=== PATIENT | female | born 1955 | race Caucasian/White ===

== ENCOUNTER 2024-03-25 02:41 | Inpatient (IN) | payer OTHER, MEDICARE, SELFPAY ==
[2024-03-24] VITALS (14 sets, daily range): BP systolic 85–123; BP diastolic 51–76
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
[2024-03-24 20:03] LABS: % Basophils 2.5 % (0-2); % Eosinophils 0.1 % (0-6); % Immature Granulocytes 22.1 % (0-0.5); % Monocytes 3.8 % (1.7-9.3); % Neutrophils 64.5 % (42.2-75.2); Absolute Immature Granulocytes 8.7 10^3/uL (0-0.05); Absolute Lymphocytes 2.8 10^3/uL (1.2-3.4); Absolute Monocytes 1.5 10^3/uL (0.1-0.6); Absolute Neutrophils 25.4 10^3/uL (1.4-6.5); Mean Corpuscular Hgb 28.2 pg (27.0-31.0); Mean Corpuscular Volume 88.1 fL (81.0-99.0); Mean Platelet Volume 9.5 fL (7.4-10.4); Nucleated Red Blood Cells % 0.9 %; Platelet Count 1221 10^3/uL (130-400); Red Blood Cell Count 2.27 10^6/uL (4.20-5.40); Red Cell Dist. Width 17.2 % (11.5-14.5); White Blood Cell Count 39.3 10^3/uL (4.8-10.8)
[2024-03-24 20:18] LABS: ALT (SGPT) 16 U/L (0-35); AST (SGOT) 34 U/L (14-36); Albumin 3.2 g/dl (3.5-5.0); Alkaline Phosphatase 89 U/L (38-126); Blood Urea Nitrogen 18 mg/dl (7-17); Calcium 8.7 mg/dl (8.4-10.2); Carbon Dioxide 24 mmol/L (22-30); Chloride 101 mmol/L (98-107); Glucose 76 mg/dl (70-99); Sodium 131 mmol/L (135-145); Total Bilirubin 0.8 mg/dl (0.2-1.3); Total Protein 5.5 g/dl (6.3-8.2); eGFR > 60.00
[2024-03-24 20:20] LABS: Hemoglobin 6.4 g/dL (12.0-16.0)
[2024-03-24 20:44] LABS: Absolute Neutrophils -Man Diff 29.4 10^3/uL (1.4-6.5); Anisocytosis 2+; Band Neutrophils 3 % (0-3); Lymphocytes 5 % (20-51); Macrocytosis 2+; Metamyelocytes 6 % (-); Microcytosis 1+; Monocytes 4 % (2-9); Myelocytes 9 % (-); Normal RBC Morphology No; Nucleated Red Blood Cells 2 (-); Pathologist Reviewed No; Platelets Checked Yes; Polychromasia 2+; Promyelocytes 1 % (-); Segmented Neutrophils 72 % (42-75)
[2024-03-24 20:45] LABS: Tear Drop Red Blood Cells 1+; Total Cells Counted 100
[2024-03-24 21:08] LABS: Lactic Acid 0.7 mmol/L (0.7-2.0)
[2024-03-24] MEDS: NSS 250 IV (22:30)
[2024-03-24] MEDS: MORPHINE SULFATE 2 MG IV (22:30)
[2024-03-25] VITALS (29 sets, daily range): BP systolic 103–132; BP diastolic 54–88; PULSE 95–96; O2SAT 96; BMI 27.8
[2024-03-25] MEDS: XANAX 0.5 MG PO (00:02)
[2024-03-25] MEDS: DILAUDID 0.5 MG IV ×3 (03:12→21:14)
[2024-03-25] MEDS: DESYREL 50 MG PO ×2 (03:12→23:21)
[2024-03-25 05:30] LABS: Hematocrit 21.5 % (37.0-47.0); Hemoglobin 7.2 g/dL (12.0-16.0); Mean Corp Hgb Conc. 33.5 g/dL (33.0-37.0); Mean Corpuscular Hgb 29.4 pg (27.0-31.0); Mean Corpuscular Volume 87.8 fL (81.0-99.0); Mean Platelet Volume 8.9 fL (7.4-10.4); Platelet Count 1026 10^3/uL (130-400); Red Blood Cell Count 2.45 10^6/uL (4.20-5.40); Red Cell Dist. Width 16.4 % (11.5-14.5); Reticulocyte Count 6.9 % (0.4-2.8); White Blood Cell Count 38.3 10^3/uL (4.8-10.8)
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
[2024-03-25 06:10] LABS: Blood Urea Nitrogen 16 mg/dl (7-17); Calcium 8.7 mg/dl (8.4-10.2); Carbon Dioxide 24 mmol/L (22-30); Chloride 104 mmol/L (98-107); Glucose 81 mg/dl (70-99); Sodium 129 mmol/L (135-145); eGFR > 60.00
[2024-03-25 06:17] LABS: Iron 28 ug/dl (37-170)
[2024-03-25 06:26] LABS: Percent Saturation 9 % (20-50); Total Iron Binding Capacity 283 ug/dl (265-497)
[2024-03-25 07:00] LABS: Vitamin B12 963 pg/ml (239-931)
[2024-03-25] MEDS: TOPROL XL 25 MG PO ×2 (07:21→21:10)
[2024-03-25] MEDS: COLACE 100 MG PO ×2 (07:21→21:11)
[2024-03-25] MEDS: TYLENOL 1000 MG PO ×3 (07:22→23:08)
[2024-03-25] MEDS: ROXICODONE 5 MG PO ×3 (07:23→23:12)
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
[2024-03-25 12:47] LABS: Osmolality Serum 279 mOsm/kg (275-300)
[2024-03-25 14:53] LABS: Urine Albumin Negative (Neg - Trace); Urine Bilirubin Negative (Negative); Urine Character Clear (Clear); Urine Color Yellow; Urine Glucose Negative (Negative); Urine Ketone Negative (Negative); Urine Leukocyte Trace (Negative); Urine Nitrite Negative (Negative); Urine Occult Blood Negative (Negative); Urine Specific Gravity 1.015 (<1.030); Urine Urobilinogen Negative (Neg - 1+)
[2024-03-25 15:03] LABS: Urine Bacteria Few (Negative); Urine Squamous Cell 0-2 /LPF (Few)
[2024-03-25 15:04] LABS: Urine Red Blood Cell 0-2 /HPF (0-2); Urine White Cell 0-2 /HPF (0-5)
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
--- NOTE | 2024-03-25 17:23 | PTCARENOTE ---
pt admitted from ed. pt aaox3. tearful about pt husbands recent passing. pt states 8/10 pain in right hip. pain med given as ordered. prbc running started in ER. pt roomed in. daughter at bedside reviewed pt condition and plan of care.
bruising noted over right hip abd left flank both knees right breast. scab seen on left wrist. left leg in soft cast. pulses present bilat dp. room air breath sounds diminished with poor ins effort. i/s encouraged.
[2024-03-25] MEDS: FLEXERIL 10 MG PO ×2 (17:31→23:08)
[2024-03-25 18:35] LABS: Osmolality Urine 394 mOsm/kg (300-900)
[2024-03-25 18:46] LABS: Urine Sodium 54 mmol/L (30-90)
[2024-03-25] MEDS: SENOKOT 17.1999999999999993 MG PO (23:12)
[2024-03-25] MEDS: TYLENOL PO (23:57)
[2024-03-26] VITALS (10 sets, daily range): BP systolic 98–129; BP diastolic 58–77
--- NOTE | 2024-03-26 01:56 | PTCARENOTE ---
Pt received from previous shift in bed. AAOx3, tearful at times ( recently) Telemetry = SR w/1st AV block. Full physical assessment documented (refer to worklist). Vascular checks WNL. Soft cast to LLE. Medicated for pain
per MD orders (refer to MAR). #20 LFA and #20 RAC INTs patent. Call wilson within reach. Plan of care ongoing.
[2024-03-26] MEDS: DILAUDID 0.5 MG IV ×3 (03:14→20:45)
[2024-03-26 03:59] LABS: Absolute Lymphocytes 2.6 10^3/uL (1.2-3.4); Hematocrit 25.7 % (37.0-47.0); Hemoglobin 8.6 g/dL (12.0-16.0); Mean Corp Hgb Conc. 33.5 g/dL (33.0-37.0); Mean Corpuscular Hgb 29.3 pg (27.0-31.0); Mean Corpuscular Volume 87.4 fL (81.0-99.0); Mean Platelet Volume 9.4 fL (7.4-10.4); Nucleated Red Blood Cells % 0.5 %; Platelet Count 972 10^3/uL (130-400); Red Blood Cell Count 2.94 10^6/uL (4.20-5.40); Red Cell Dist. Width 16.3 % (11.5-14.5); White Blood Cell Count 34.2 10^3/uL (4.8-10.8)
[2024-03-26 04:02] LABS: INR 1.12; PT 14.3 Sec (11.4-14.6)
[2024-03-26 04:03] LABS: APTT 36.6 Sec (23.4-35.0)
[2024-03-26 04:14] LABS: Blood Urea Nitrogen 16 mg/dl (7-17); Calcium 9.2 mg/dl (8.4-10.2); Carbon Dioxide 25 mmol/L (22-30); Chloride 103 mmol/L (98-107); Estimated Creatinine Clearance 85 ml/min; Glucose 75 mg/dl (70-99); Sodium 132 mmol/L (135-145); eGFR > 60.00
[2024-03-26 05:18] LABS: Absolute Neutrophils -Man Diff 25.3 10^3/uL (1.4-6.5); Band Neutrophils 6 % (0-3); Lymphocytes 5 % (20-51); Metamyelocytes 6 % (-); Monocytes 2 % (2-9); Segmented Neutrophils 68 % (42-75)
[2024-03-26 05:19] LABS: Myelocytes 11 % (-)
[2024-03-26 05:25] LABS: Platelets Checked Yes
[2024-03-26 05:26] LABS: Anisocytosis 1+; Burr Cells 1+; Normal RBC Morphology No; Nucleated Red Blood Cells 2 (-); Ovalocytes 1+; Rouleaux 1+; Total Cells Counted 100
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
[2024-03-26] MEDS: TYLENOL 1000 MG PO ×3 (07:34→23:19)
[2024-03-26] MEDS: COLACE 100 MG PO (07:34)
[2024-03-26] MEDS: FLEXERIL 10 MG PO ×3 (07:35→23:19)
[2024-03-26] MEDS: TOPROL XL 25 MG PO ×2 (07:35→20:14)
--- NOTE | 2024-03-26 07:59 | W.PN.UPDATE ---
Update Note
Progress Note Update
Pt seen and chart reviewed
Splint removed
Has nondisplaced fx of the L medial malleolus
No surgery indicated at this time
Fx Walker brace ordered
Please keep nonWB L LE with walker
Have F/U with me in about 7-10 days as outpt
thanks
GGMD
[2024-03-26] MEDS: ROXICODONE 5 MG PO ×3 (11:33→23:19)
[2024-03-26] MEDS: FERRLECIT 110 MG IV (13:13)
[2024-03-26] MEDS: XANAX 0.5 MG PO ×2 (13:16→23:19)
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
--- NOTE | 2024-03-26 18:30 | TRANSFER ---
Pt transferred to [facility] via wheelchair with all personal belongings. Telephone report given to Kristina GUTHRIE.
[2024-03-26] MEDS: SENOKOT PO (20:14)
[2024-03-26] MEDS: COLACE PO (20:14)
[2024-03-27] MEDS: ROXICODONE 5 MG PO ×4 (03:37→23:07)
[2024-03-27 03:56] VITALS: BP 140/72
[2024-03-27 05:17] LABS: Hematocrit 24.9 % (37.0-47.0); Hemoglobin 8.1 g/dL (12.0-16.0); Mean Corp Hgb Conc. 32.5 g/dL (33.0-37.0); Mean Corpuscular Hgb 28.5 pg (27.0-31.0); Mean Corpuscular Volume 87.7 fL (81.0-99.0); Mean Platelet Volume 8.8 fL (7.4-10.4); Platelet Count 865 10^3/uL (130-400); Red Blood Cell Count 2.84 10^6/uL (4.20-5.40); Red Cell Dist. Width 16.3 % (11.5-14.5)
[2024-03-27 06:33] LABS: Blood Urea Nitrogen 17 mg/dl (7-17); Calcium 8.9 mg/dl (8.4-10.2); Carbon Dioxide 25 mmol/L (22-30); Chloride 103 mmol/L (98-107); Estimated Creatinine Clearance 85 ml/min; Glucose 78 mg/dl (70-99); Sodium 131 mmol/L (135-145); eGFR > 60.00
[2024-03-27 07:53] VITALS: BP 134/72
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
[2024-03-27 08:26] LABS: Band Neutrophils 6 % (0-3)
[2024-03-27 08:27] LABS: Lymphocytes 6 % (20-51); Metamyelocytes 5 % (-); Monocytes 2 % (2-9); Myelocytes 11 % (-); Normal RBC Morphology No; Nucleated Red Blood Cells 3 (-); Platelets Checked YES
[2024-03-27 08:28] LABS: Anisocytosis Slight; Macrocytosis Slight; Polychromasia Slight; Target Cells FEW
[2024-03-27 08:29] LABS: Schistocytes RARE; Tear Drop Red Blood Cells FEW; Total Cells Counted 100
[2024-03-27 08:33] LABS: Absolute Neutrophils -Man Diff 20.7 10^3/uL (1.4-6.5); Segmented Neutrophils 68 % (42-75)
[2024-03-27] MEDS: FLEXERIL 10 MG PO ×3 (09:12→23:07)
[2024-03-27] MEDS: TYLENOL 1000 MG PO ×3 (09:12→23:07)
[2024-03-27] MEDS: TOPROL XL 25 MG PO ×2 (09:12→19:40)
[2024-03-27] MEDS: DILAUDID 0.5 MG IV ×4 (09:16→22:33)
--- NOTE | 2024-03-27 09:22 | PN.CDI ---
CDI
- -
CDI:
Physician Documentation Request
Admit Date: 03/25/24 02:41
Dear Doctor Carmen,
Please review the following and provide your response in the progress notes.
Clinical Indicators:
03/24 Pt admitted with Acute blood loss anemia
03/25 H&P: 'Patient was maintained on Coumadin for her history of Factor V / multiple DVTs. She was started on Lovenox for her Factor V Leiden history. Will hold Lovenox for now given ongoing bleeding, enlarging hematoma, recent / major trama, etc.'
03/26 PN: 'Patient on Coumadin x years prior to her recent trauma.
- Started on therapeutic dose Lovenox at [facility] and has been on this since that time.
- Will hold this acutely given enlarging hematoma, worsening anemia, etc.'
The following conditions now have an assumed link:
Anemia is assumed to be related to/associated with/due to Lovenox.
Please clarify the relationship between these conditions:
Yes, Anemia is related to/exacerbated by Lovenox.
No, Anemia is not related to/exacerbated by Lovenox.
Other (please specify)
Use of terms such as suspected, likely, concern for, or probable (associated with a specific diagnosis that is being evaluated, monitored, or treated as if it exists) are acceptable and can be coded in the inpatient setting, when documented at the
time of discharge.
Thank you,
Shilpa Souza RN, BSN
CDI Specialist
Available via [employer]
Please use your independent medical judgment in providing your response.
[2024-03-27] MEDS: COLACE PO ×2 (09:28→19:39)
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
[2024-03-27] MEDS: XANAX 0.5 MG PO ×2 (10:51→23:07)
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
[2024-03-27 12:01] VITALS: BP 120/60
[2024-03-27] MEDS: FERRLECIT 110 MG IV (13:51)
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
[2024-03-27 16:00] VITALS: BP 120/73
[2024-03-27] MEDS: SENOKOT PO (19:39)
[2024-03-27 19:42] VITALS: BP 113/61
[2024-03-27] MEDS: DESYREL 50 MG PO (21:02)
[2024-03-27 23:18] VITALS: BP 127/69
[2024-03-28] VITALS (7 sets, daily range): BP systolic 79–134; BP diastolic 57–75
[2024-03-28] MEDS: DILAUDID 0.5 MG IV ×4 (05:33→23:35)
[2024-03-28 06:16] LABS: Number Of Markers 29 markers; Source Blood
[2024-03-28 07:00] LABS: Hematocrit 26.9 % (37.0-47.0); Hemoglobin 8.7 g/dL (12.0-16.0); Mean Corp Hgb Conc. 32.3 g/dL (33.0-37.0); Mean Corpuscular Hgb 28.8 pg (27.0-31.0); Mean Corpuscular Volume 89.1 fL (81.0-99.0); Mean Platelet Volume 8.9 fL (7.4-10.4); Nucleated Red Blood Cells % 0.4 %; Platelet Count 842 10^3/uL (130-400); Red Blood Cell Count 3.02 10^6/uL (4.20-5.40); Red Cell Dist. Width 16.8 % (11.5-14.5); White Blood Cell Count 29.3 10^3/uL (4.8-10.8)
[2024-03-28 07:23] LABS: Blood Urea Nitrogen 15 mg/dl (7-17); Calcium 9.2 mg/dl (8.4-10.2); Carbon Dioxide 22 mmol/L (22-30); Chloride 103 mmol/L (98-107); Estimated Creatinine Clearance 99 ml/min; Glucose 74 mg/dl (70-99); Potassium 4.8 mmol/L (3.5-5.1); Sodium 131 mmol/L (135-145); eGFR > 60.00
[2024-03-28] MEDS: TYLENOL 1000 MG PO ×3 (08:22→21:49)
[2024-03-28] MEDS: ROXICODONE 5 MG PO ×4 (08:23→21:49)
[2024-03-28] MEDS: TOPROL XL 25 MG PO ×2 (08:23→21:49)
[2024-03-28] MEDS: FLEXERIL 10 MG PO ×3 (08:23→23:34)
[2024-03-28] MEDS: COLACE PO ×2 (08:24→21:48)
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
[2024-03-28 10:24] LABS: Absolute Neutrophils -Man Diff 25.4 10^3/uL (1.4-6.5); Band Neutrophils 7 % (0-3); Lymphocytes 6 % (20-51); Metamyelocytes 6 % (-); Monocytes 1 % (2-9); Platelets Checked Yes; Segmented Neutrophils 80 % (42-75)
[2024-03-28 10:25] LABS: Acanthocytes 1+; Anisocytosis 1+; Hypochromasia 1+; Normal RBC Morphology No; Ovalocytes 1+; Polychromasia 1+; Total Cells Counted 100
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
[2024-03-28] MEDS: FERRLECIT 110 MG IV (13:25)
--- NOTE | 2024-03-28 15:30 | PTCARENOTE ---
Pt returned from [facility].Report from Snehal GUTHRIE. Pt awake, alert and oriented x3. Right IJ site with small amount of blood to dressing, no hematoma no active bleeding at this time. VSS, reoriented to room, pain to ribs, medicated per orders. Plan of
care continues.
--- NOTE | 2024-03-28 17:29 | VATNOTE ---
laborer cement gun placing reported that pt. had lt. arm venofer infiltrate this am. Site, pink, warm to touch, approx. 8cm x 4cm. Ice applied and elevated. New IV inserted by prior VAT nurse. Will follow.
[2024-03-28] MEDS: SENOKOT PO (21:49)
[2024-03-28] MEDS: DESYREL 50 MG PO (21:51)
[2024-03-29] VITALS (8 sets, daily range): BP systolic 99–133; BP diastolic 61–75; PULSE 93
[2024-03-29] MEDS: ROXICODONE 5 MG PO ×3 (01:48→19:58)
[2024-03-29] MEDS: XANAX 0.5 MG PO ×3 (01:48→19:58)
[2024-03-29] MEDS: DILAUDID 0.5 MG IV ×4 (05:13→23:05)
[2024-03-29 08:33] LABS: Hematocrit 27.3 % (37.0-47.0); Hemoglobin 8.7 g/dL (12.0-16.0); Mean Corp Hgb Conc. 31.9 g/dL (33.0-37.0); Mean Corpuscular Hgb 28.4 pg (27.0-31.0); Mean Corpuscular Volume 89.2 fL (81.0-99.0); Mean Platelet Volume 8.9 fL (7.4-10.4); Platelet Count 819 10^3/uL (130-400); Red Blood Cell Count 3.06 10^6/uL (4.20-5.40); Red Cell Dist. Width 17.7 % (11.5-14.5); White Blood Cell Count 26.5 10^3/uL (4.8-10.8)
[2024-03-29 09:34] LABS: Blood Urea Nitrogen 16 mg/dl (7-17); Calcium 9.2 mg/dl (8.4-10.2); Carbon Dioxide 21 mmol/L (22-30); Chloride 103 mmol/L (98-107); Estimated Creatinine Clearance 99 ml/min; Glucose 52 mg/dl (70-99); Potassium 4.6 mmol/L (3.5-5.1); Sodium 134 mmol/L (135-145); eGFR > 60.00
[2024-03-29 09:41] LABS: Glucose - Point of Care 92 mg/dl (70-99)
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
[2024-03-29] MEDS: COLACE PO ×2 (10:23→19:59)
--- NOTE | 2024-03-29 10:30 | PTCARENOTE ---
Pt's BP 99/70 at this time with BP check prior to meds. Pt asymptomatic. Dr. Morales indicated to hold BP med for now and recheck BP at lunch time. Updated pt on plan, will monitor.
[2024-03-29] MEDS: FLEXERIL 10 MG PO ×3 (10:32→23:06)
[2024-03-29] MEDS: TYLENOL PO (10:32)
[2024-03-29] MEDS: FLUSH (NSS) 2 FLUSH IV (10:33)
[2024-03-29 11:52] LABS: Glucose - Point of Care 79 mg/dl (70-99)
[2024-03-29 12:08] LABS: Absolute Neutrophils -Man Diff 21.9 10^3/uL (1.4-6.5); Band Neutrophils 6 % (0-3); Lymphocytes 6 % (20-51); Metamyelocytes 3 % (-); Monocytes 1 % (2-9); Myelocytes 6 % (-); Normal RBC Morphology Yes; Platelets Checked Yes; Promyelocytes 1 % (-); Segmented Neutrophils 77 % (42-75); Total Cells Counted 100
[2024-03-29] MEDS: TOPROL XL 25 MG PO ×2 (12:12→23:05)
--- NOTE | 2024-03-29 13:14 | VATNOTE ---
Site remains unchanged from yesterday. Ice bag reapplied.
[2024-03-29] MEDS: FERRLECIT 110 MG IV (13:40)
--- NOTE | 2024-03-29 15:03 | CM ---
SW spoke with pt regarding dc planning.
Pt was evaluated for [facility], thought is SNF would be more appropriate given the time she will likely need to recover.
Pt would like to be considered for [facility] [place], referral sent through [facility]. [facility] referral was previously placed.
PLAN; Continue to follow and support SNF placement.
[2024-03-29 16:00] LABS: Glucose - Point of Care 122 mg/dl (70-99)
[2024-03-29] MEDS: TYLENOL 1000 MG PO ×2 (17:31→23:05)
[2024-03-29] MEDS: SENOKOT PO (20:00)
[2024-03-29 21:11] LABS: Glucose - Point of Care 102 mg/dl (70-99)
[2024-03-29] MEDS: DESYREL 50 MG PO (23:05)
[2024-03-30 03:32] LABS: Glucose - Point of Care 88 mg/dl (70-99)
[2024-03-30] MEDS: DILAUDID 0.5 MG IV ×4 (03:44→19:50)
[2024-03-30 03:55] VITALS: BP 133/74
[2024-03-30] MEDS: ROXICODONE 5 MG PO ×3 (06:13→18:00)
[2024-03-30 07:40] VITALS: BP 130/63
[2024-03-30] MEDS: TYLENOL 1000 MG PO ×3 (07:52→23:15)
[2024-03-30] MEDS: COLACE 100 MG PO ×2 (07:54→19:49)
[2024-03-30] MEDS: TOPROL XL 25 MG PO ×2 (07:54→19:49)
[2024-03-30] MEDS: FLEXERIL 10 MG PO ×3 (07:54→23:15)
[2024-03-30] MEDS: XANAX 0.5 MG PO ×2 (08:00→19:50)
[2024-03-30 08:24] LABS: Hematocrit 27.1 % (37.0-47.0); Hemoglobin 8.9 g/dL (12.0-16.0); Mean Corp Hgb Conc. 32.8 g/dL (33.0-37.0); Mean Corpuscular Hgb 29.2 pg (27.0-31.0); Mean Corpuscular Volume 88.9 fL (81.0-99.0); Platelet Count 756 10^3/uL (130-400); Red Blood Cell Count 3.05 10^6/uL (4.20-5.40)
[2024-03-30 08:35] LABS: Glucose - Point of Care 93 mg/dl (70-99)
[2024-03-30 08:52] LABS: Blood Urea Nitrogen 18 mg/dl (7-17); Calcium 9.2 mg/dl (8.4-10.2); Carbon Dioxide 27 mmol/L (22-30); Chloride 101 mmol/L (98-107); Estimated Creatinine Clearance 85 ml/min; Glucose 61 mg/dl (70-99); Potassium 5.1 mmol/L (3.5-5.1); Sodium 130 mmol/L (135-145); eGFR > 60.00
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
[2024-03-30] MEDS: OCEAN, SALINE MIST 2 SPRAYS NASAL (10:33)
--- NOTE | 2024-03-30 11:19 | VATNOTE ---
Right arm continues to be sore and painful. Warm compress applied for comfort. Will monitor closely.
[2024-03-30 11:25] VITALS: BP 126/62
[2024-03-30 12:41] LABS: Absolute Neutrophils -Man Diff 17.7 10^3/uL (1.4-6.5); Band Neutrophils 4 % (0-3); Lymphocytes 10 % (20-51); Monocytes 3 % (2-9); Segmented Neutrophils 67 % (42-75)
[2024-03-30 12:42] LABS: Metamyelocytes 1 % (-); Myelocytes 9 % (-); Normal RBC Morphology No; Platelets Checked YES
[2024-03-30 12:44] LABS: Hypochromasia Slight; Microcytosis FEW
[2024-03-30 12:45] LABS: Schistocytes RARE; Tear Drop Red Blood Cells Moderate
[2024-03-30 12:46] LABS: Target Cells FEW; Total Cells Counted 100
[2024-03-30] MEDS: FERRLECIT 110 MG IV (13:03)
[2024-03-30 15:40] VITALS: BP 119/65
[2024-03-30 19:34] VITALS: BP 132/64
[2024-03-30] MEDS: SENOKOT PO (19:45)
[2024-03-30] MEDS: DESYREL 50 MG PO (23:15)
[2024-03-30 23:22] VITALS: BP 113/62
[2024-03-31] MEDS: DILAUDID 0.5 MG IV ×2 (02:30→11:43)
[2024-03-31 03:16] VITALS: BP 141/74
[2024-03-31 07:35] VITALS: BP 137/59
[2024-03-31 07:36] LABS: % Basophils 4.9 % (0-2); % Eosinophils 0.2 % (0-6); % Immature Granulocytes 14.6 % (0-0.5); % Neutrophils 67.3 % (42.2-75.2); Absolute Basophils 1.1 10^3/uL (0-0.2); Absolute Eosinophils 0.1 10^3/uL (0-0.7); Absolute Immature Granulocytes 3.3 10^3/uL (0-0.05); Absolute Lymphocytes 1.8 10^3/uL (1.2-3.4); Absolute Monocytes 1.1 10^3/uL (0.1-0.6); Hematocrit 28.3 % (37.0-47.0); Hemoglobin 9.2 g/dL (12.0-16.0); Mean Corp Hgb Conc. 32.5 g/dL (33.0-37.0); Mean Corpuscular Volume 89.3 fL (81.0-99.0); Mean Platelet Volume 8.7 fL (7.4-10.4); Nucleated Red Blood Cells % 0.3 %; Platelet Count 716 10^3/uL (130-400); Red Blood Cell Count 3.17 10^6/uL (4.20-5.40); Red Cell Dist. Width 17.9 % (11.5-14.5); White Blood Cell Count 22.3 10^3/uL (4.8-10.8)
[2024-03-31] MEDS: TOPROL XL 25 MG PO ×2 (08:02→19:40)
[2024-03-31] MEDS: XANAX 0.5 MG PO ×2 (08:02→19:40)
[2024-03-31] MEDS: ROXICODONE 5 MG PO (08:02)
[2024-03-31] MEDS: FLEXERIL 10 MG PO ×3 (08:02→22:59)
[2024-03-31] MEDS: TYLENOL 1000 MG PO ×3 (08:02→22:59)
[2024-03-31] MEDS: COLACE PO ×2 (08:02→19:31)
[2024-03-31 08:07] LABS: Blood Urea Nitrogen 16 mg/dl (7-17); Calcium 9.4 mg/dl (8.4-10.2); Carbon Dioxide 24 mmol/L (22-30); Chloride 103 mmol/L (98-107); Estimated Creatinine Clearance 99 ml/min; Glucose 81 mg/dl (70-99); Potassium 4.8 mmol/L (3.5-5.1); Sodium 134 mmol/L (135-145); eGFR > 60.00
[2024-03-31 08:28] LABS: Absolute Neutrophils -Man Diff 16.2 10^3/uL (1.4-6.5); Band Neutrophils 7 % (0-3); Eosinophils 1 % (0-6); Lymphocytes 5 % (20-51); Monocytes 4 % (2-9); Segmented Neutrophils 66 % (42-75)
[2024-03-31 08:29] LABS: Atypical Lymphocytes 1 %; Metamyelocytes 7 % (-); Myelocytes 5 % (-); Normal RBC Morphology No; Platelets Checked Yes
[2024-03-31 08:30] LABS: Anisocytosis Slight
[2024-03-31 08:32] LABS: Target Cells FEW; Tear Drop Red Blood Cells FEW
[2024-03-31 08:33] LABS: Schistocytes RARE; Total Cells Counted 100
[2024-03-31 11:12] VITALS: BP 103/73
--- NOTE | 2024-03-31 13:00 | CM ---
Addendum entered by Cynthia Leigh 03/31/24 14:23:
Per [facility]- no upcoming beds available
[facility]- update to admissions, referral pending
Original Note:
CM reviewed pt with Dr Ness- JUN tomorrow
Call to dtr with update
She provided claim info
Updated clinicals and claim info sent via [employer] [facility]nd [facility] SNF referrals pending
[employer] #[id number] [facility] [phone]
Billing address- [employer]
[address]
[facility] [address]
Attn- [id number]
Call with crop insurance claims adjuster- noted hospitalization claim will likely max out benefit
Recommends SNF send bills to get denial for Medicare billing
Also noted no prior auth needed, can attend rehab to any accepting facility
Pt has been denied at [facility]
Discharge Disposition- SNF
[2024-03-31] MEDS: ROXICODONE 10 MG PO ×3 (14:16→23:00)
[2024-03-31 15:54] VITALS: BP 120/71
[2024-03-31] MEDS: COLACE 100 MG PO (16:12)
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
[2024-03-31 19:27] VITALS: BP 132/70
[2024-03-31] MEDS: SENOKOT PO (19:36)
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
[2024-03-31] MEDS: DESYREL 50 MG PO (23:00)
[2024-03-31 23:21] VITALS: BP 124/63
[2024-04-01 03:23] VITALS: BP 130/68
[2024-04-01] MEDS: ROXICODONE 10 MG PO ×5 (04:44→21:11)
[2024-04-01 07:30] VITALS: BP 120/60
[2024-04-01] MEDS: TYLENOL 1000 MG PO ×3 (07:44→23:09)
[2024-04-01] MEDS: XANAX 0.5 MG PO ×2 (07:45→21:13)
[2024-04-01] MEDS: COLACE 100 MG PO (07:45)
[2024-04-01] MEDS: FLEXERIL 10 MG PO ×3 (07:45→23:09)
[2024-04-01] MEDS: TOPROL XL 25 MG PO ×2 (07:45→20:37)
[2024-04-01 07:55] LABS: Hematocrit 28.5 % (37.0-47.0); Hemoglobin 9.2 g/dL (12.0-16.0); Mean Corp Hgb Conc. 32.3 g/dL (33.0-37.0); Mean Corpuscular Hgb 28.8 pg (27.0-31.0); Mean Corpuscular Volume 89.3 fL (81.0-99.0); Nucleated Red Blood Cells % 0 %; Platelet Count 685 10^3/uL (130-400); Red Blood Cell Count 3.19 10^6/uL (4.20-5.40); Red Cell Dist. Width 17.9 % (11.5-14.5); White Blood Cell Count 20.7 10^3/uL (4.8-10.8)
[2024-04-01 08:21] LABS: Blood Urea Nitrogen 12 mg/dl (7-17); Calcium 9.5 mg/dl (8.4-10.2); Carbon Dioxide 25 mmol/L (22-30); Chloride 101 mmol/L (98-107); Estimated Creatinine Clearance 85 ml/min; Glucose 79 mg/dl (70-99); Potassium 4.8 mmol/L (3.5-5.1); Sodium 131 mmol/L (135-145); eGFR > 60.00
[2024-04-01 10:38] LABS: Platelets Checked Yes
[2024-04-01 10:39] LABS: Absolute Neutrophils -Man Diff 16.1 10^3/uL (1.4-6.5); Band Neutrophils 4 % (0-3); Lymphocytes 9 % (20-51); Monocytes 5 % (2-9); Normal RBC Morphology Yes; Segmented Neutrophils 74 % (42-75); Total Cells Counted 100
[2024-04-01 10:40] LABS: Metamyelocytes 2 % (-); Myelocytes 4 % (-)
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
[2024-04-01 11:30] VITALS: BP 121/73
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
[2024-04-01 15:30] VITALS: BP 126/62
[2024-04-01 19:08] VITALS: BP 131/72
[2024-04-01 19:44] LABS: JAK2 Qual Mutation by PCR Not Detected; JAK2-PCR Source Whole Blood
[2024-04-01] MEDS: COLACE PO (20:00)
[2024-04-01] MEDS: SENOKOT PO (22:00)
[2024-04-01 23:24] VITALS: BP 119/60
[2024-04-01] MEDS: DESYREL 50 MG PO (23:24)
--- NOTE | 2024-04-02 03:04 | DOWNTIME ---
There was a [employer] Downtime on 03/05/2024 from 0100 to 03/05/2024 at 0439. Downtime documentation of patient's care, including medication administrations, has been reconciled in the electronic record per guidelines. Refer to the
patient's paper chart under the miscellaneous tab to see printed paper medication records and downtime forms.
[2024-04-02 03:39] VITALS: BP 123/63
[2024-04-02] MEDS: ROXICODONE 10 MG PO ×4 (05:03→18:01)
[2024-04-02] MEDS: OCEAN, SALINE MIST 2 SPRAYS NASAL (05:11)
[2024-04-02 08:15] VITALS: BP 146/88
[2024-04-02] MEDS: XANAX 0.5 MG PO ×2 (08:39→18:01)
[2024-04-02] MEDS: TYLENOL 1000 MG PO ×2 (08:39→15:38)
[2024-04-02] MEDS: FLEXERIL 10 MG PO ×2 (08:40→15:39)
[2024-04-02] MEDS: TOPROL XL 25 MG PO (08:40)
[2024-04-02] MEDS: COLACE 100 MG PO (08:40)
[2024-04-02 11:55] VITALS: BP 117/65
--- NOTE | 2024-04-02 13:38 | CM ---
met with patient at bedside.she is stable to dc to [facility].confirmed with araceli in adm that bed is available today.patient signed imm letter.
phone number to call report is [phone] and fax number is [phone].TT sent to attending about discharge.
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
[2024-04-02 15:55] VITALS: BP 134/88
[2024-04-02 15:59] VITALS: BP 134/88
[2024-04-02 19:36] VITALS: BP 139/79
[2024-04-02 20:18] LABS: Factor VIII Activity 266 % (56-191); Ristocetin Cofactor Activity 230 % (51-215); Von Willebrands Factor Antigen 237 % (52-214)
[2024-04-03 00:01] LABS: BCR-ABL1 Source Whole Blood; BCR-ABL1, Diagnostic Qual Positive Major
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
[2024-04-03 19:34] LABS: BCR-ABL1 Major (p210) Source Whole Blood; BCR/ABL1, Major (p210) High Positive
== END 2024-04-02 19:53 | DRG 813 ==
LOC: 4 EAST ACU 02:41
PROVIDERS: Internal Medicine; Nurse Practitioner; Radiology Vascular & Interventional Radiology; ADMITTING PHYSICIAN Hospitalist; ATTENDING PHYSICIAN Hospitalist; CONSULT PHYSICIAN Internal Medicine Hematology & Oncology; CONSULT PHYSICIAN Orthopaedic Surgery Hand Surgery; CONSULT PHYSICIAN Physical Medicine & Rehabilitation; EMERGENCY PHYSICIAN Emergency Medicine; FAMILY PHYSICIAN Family Medicine
PROC: 30233N1 Transfusion of Nonautologous Red Blood Cells into Peripheral Vein, Percutaneous Approach (ICD-10-PCS; 2024-03-24)
PROC: 06H03DZ Insertion of Intraluminal Device into Inferior Vena Cava, Percutaneous Approach (ICD-10-PCS; 2024-03-28)
DX: D68.32 Hemorrhagic disorder due to extrinsic circulating anticoagulants (principal); S22.43XA Multiple fractures of ribs, bilateral, initial encounter for closed fracture; D68.51 Activated protein C resistance; E87.1 Hypo-osmolality and hyponatremia; I47.10 Supraventricular tachycardia, unspecified; D62 Acute posthemorrhagic anemia; I82.5Z2 Chronic embolism and thrombosis of unspecified deep veins of left distal lower extremity; S30.1XXA Contusion of abdominal wall, initial encounter; D75.839 Thrombocytosis, unspecified; F32.9 Major depressive disorder, single episode, unspecified; F41.9 Anxiety disorder, unspecified; S80.11XA Contusion of right lower leg, initial encounter
CPT/HCPCS: 36430; 37191; 71111; 73610; 74177; 80048; 80053; 81003; 81015; 81206; 81207; 81208; 81270; 82607; 82728; 82962; 83540; 83550; 83605; 83930; 83935; 84300; 85025; 85027; 85045; 85240; 85245; 85246; 85247; 85610; 85730; 86850; 86900; 86901; 86920; 87040; 93970; 96374; 97116; 97163; 97530; 97535; 99285; C1769; C1880; J2916; P9016; Q9967

== ENCOUNTER → 2024-04-04 11:54 | Outpatient (REF) | payer OTHER, MEDICARE, SELFPAY ==
[2024-04-04 14:02] LABS: % Basophils 6.4 % (0-2); % Eosinophils 0.4 % (0-6); % Immature Granulocytes 13.8 % (0-0.5); % Lymphocytes 11.2 % (20.5-51.1); % Monocytes 6.6 % (1.7-9.3); % Neutrophils 61.6 % (42.2-75.2); Absolute Basophils 1.2 10^3/uL (0-0.2); Absolute Eosinophils 0.1 10^3/uL (0-0.7); Absolute Immature Granulocytes 2.5 10^3/uL (0-0.05); Absolute Monocytes 1.2 10^3/uL (0.1-0.6); Absolute Neutrophils 11.3 10^3/uL (1.4-6.5); Hematocrit 31.4 % (37.0-47.0); Hemoglobin 9.7 g/dL (12.0-16.0); Mean Corp Hgb Conc. 30.9 g/dL (33.0-37.0); Mean Corpuscular Hgb 29.4 pg (27.0-31.0); Mean Corpuscular Volume 95.2 fL (81.0-99.0); Mean Platelet Volume 9.3 fL (7.4-10.4); Nucleated Red Blood Cells % 0 %; Platelet Count 721 10^3/uL (130-400); Red Cell Dist. Width 17.7 % (11.5-14.5); White Blood Cell Count 18.3 10^3/uL (4.8-10.8)
[2024-04-04 14:12] LABS: Blood Urea Nitrogen 13 mg/dl (7-17); Calcium 9.1 mg/dl (8.4-10.2); Carbon Dioxide 25 mmol/L (22-30); Chloride 100 mmol/L (98-107); Glucose 87 mg/dl (70-99); Potassium 5.1 mmol/L (3.5-5.1); Sodium 133 mmol/L (135-145); eGFR > 60.00
== END ==
LOC: OLABP 11:54
PROVIDERS: ATTENDING PHYSICIAN Family Medicine
DX: E87.1 Hypo-osmolality and hyponatremia (principal); D68.59 Other primary thrombophilia; M62.81 Muscle weakness (generalized); I47.10 Supraventricular tachycardia, unspecified; D72.829 Elevated white blood cell count, unspecified
CPT/HCPCS: 36415; 80048; 85025

== ENCOUNTER → 2024-04-11 10:39 | Outpatient (REF) | payer OTHER, MEDICARE, SELFPAY ==
[2024-04-11 12:17] LABS: Hematocrit 33.9 % (37.0-47.0); Hemoglobin 10.6 g/dL (12.0-16.0); Mean Corp Hgb Conc. 31.3 g/dL (33.0-37.0); Mean Corpuscular Hgb 29.2 pg (27.0-31.0); Mean Corpuscular Volume 93.4 fL (81.0-99.0); Mean Platelet Volume 9.7 fL (7.4-10.4); Platelet Count 757 10^3/uL (130-400); Red Blood Cell Count 3.63 10^6/uL (4.20-5.40); Red Cell Dist. Width 17.2 % (11.5-14.5); White Blood Cell Count 20.3 10^3/uL (4.8-10.8)
[2024-04-11 12:30] LABS: Blood Urea Nitrogen 14 mg/dl (7-17); Calcium 9.5 mg/dl (8.4-10.2); Carbon Dioxide 25 mmol/L (22-30); Chloride 101 mmol/L (98-107); Glucose 51 mg/dl (70-99); Potassium 4.3 mmol/L (3.5-5.1); Sodium 137 mmol/L (135-145); eGFR > 60.00
[2024-04-11 13:04] LABS: Absolute Neutrophils -Man Diff 14.2 10^3/uL (1.4-6.5); Atypical Lymphocytes 1 %; Band Neutrophils 2 % (0-3); Lymphocytes 14 % (20-51); Metamyelocytes 2 % (-); Monocytes 5 % (2-9); Segmented Neutrophils 68 % (42-75)
[2024-04-11 13:05] LABS: Anisocytosis Slight; Hypochromasia Slight; Myelocytes 3 % (-); Normal RBC Morphology No; Platelets Checked Yes; Target Cells Slight; Tear Drop Red Blood Cells Slight; Total Cells Counted 100
== END ==
LOC: OLABP 10:39
PROVIDERS: ATTENDING PHYSICIAN Family Medicine
DX: M62.81 Muscle weakness (generalized) (principal); I47.10 Supraventricular tachycardia, unspecified; R87.1 Abnormal level of hormones in specimens from female genital organs; D68.59 Other primary thrombophilia; S22.41XD Multiple fractures of ribs, right side, subsequent encounter for fracture with routine healing; D75.839 Thrombocytosis, unspecified; S22.42XD Multiple fractures of ribs, left side, subsequent encounter for fracture with routine healing; D72.829 Elevated white blood cell count, unspecified; S80.01XD Contusion of right knee, subsequent encounter; S22.060D Wedge compression fracture of T7-T8 vertebra, subsequent encounter for fracture with routine healing; D62 Acute posthemorrhagic anemia; S22.080A Wedge compression fracture of T11-T12 vertebra, initial encounter for closed fracture
CPT/HCPCS: 36415; 80048; 85025

== ENCOUNTER → 2024-04-15 11:38 | Outpatient (REF) | payer OTHER, MEDICARE, SELFPAY ==
[2024-04-15 12:31] LABS: Hematocrit 33.8 % (37.0-47.0); Hemoglobin 10.3 g/dL (12.0-16.0); Mean Corp Hgb Conc. 30.5 g/dL (33.0-37.0); Mean Corpuscular Volume 95.2 fL (81.0-99.0); Mean Platelet Volume 9.8 fL (7.4-10.4); Platelet Count 614 10^3/uL (130-400); Red Blood Cell Count 3.55 10^6/uL (4.20-5.40); White Blood Cell Count 18.3 10^3/uL (4.8-10.8)
[2024-04-15 13:12] LABS: Absolute Neutrophils -Man Diff 12.9 10^3/uL (1.4-6.5); Anisocytosis Slight; Band Neutrophils 0 % (0-3); Eosinophils 2 % (0-6); Hypochromasia 1+; Lymphocytes 16 % (20-51); Metamyelocytes 1 % (-); Monocytes 6 % (2-9); Myelocytes 4 % (-); Normal RBC Morphology No; Platelets Checked Yes; Polychromasia Slight; Segmented Neutrophils 71 % (42-75); Target Cells Slight; Total Cells Counted 100
[2024-04-15 13:14] LABS: ALT (SGPT) < 10 U/L (0-35); AST (SGOT) 22 U/L (14-36); Albumin 3.3 g/dl (3.5-5.0); Alkaline Phosphatase 94 U/L (38-126); Blood Urea Nitrogen 18 mg/dl (7-17); Calcium 9.2 mg/dl (8.4-10.2); Carbon Dioxide 26 mmol/L (22-30); Chloride 102 mmol/L (98-107); Glucose 76 mg/dl (70-99); Potassium 4.5 mmol/L (3.5-5.1); Sodium 137 mmol/L (135-145); Total Bilirubin 0.3 mg/dl (0.2-1.3); Total Protein 5.4 g/dl (6.3-8.2); eGFR > 60.00
== END ==
LOC: OLABP 11:38
PROVIDERS: ATTENDING PHYSICIAN Family Medicine
DX: M62.81 Muscle weakness (generalized) (principal); I47.10 Supraventricular tachycardia, unspecified; E87.1 Hypo-osmolality and hyponatremia; D68.59 Other primary thrombophilia; D75.839 Thrombocytosis, unspecified; S22.41XD Multiple fractures of ribs, right side, subsequent encounter for fracture with routine healing; S22.060D Wedge compression fracture of T7-T8 vertebra, subsequent encounter for fracture with routine healing; D62 Acute posthemorrhagic anemia
CPT/HCPCS: 36415; 80053; 85025

== ENCOUNTER → 2024-05-26 09:24 | Outpatient (REF) | payer MEDICARE, SELFPAY ==
[2024-05-26 09:51] LABS: Hematocrit 34.7 % (37.0-47.0); Hemoglobin 11.3 g/dL (12.0-16.0); Mean Corp Hgb Conc. 32.6 g/dL (33.0-37.0); Mean Corpuscular Volume 89.2 fL (81.0-99.0); Mean Platelet Volume 9.5 fL (7.4-10.4); Platelet Count 718 10^3/uL (130-400); Red Blood Cell Count 3.89 10^6/uL (4.20-5.40); Red Cell Dist. Width 15.2 % (11.5-14.5); White Blood Cell Count 14.3 10^3/uL (4.8-10.8)
[2024-05-26 10:13] LABS: INR 1.24; PT 15.7 Sec (11.4-14.6)
[2024-05-26 10:20] VITALS: BP 111/71; BP_SYST 58
[2024-05-26 10:36] LABS: Absolute Neutrophils -Man Diff 10.2 10^3/uL (1.4-6.5); Band Neutrophils 3 % (0-3); Lymphocytes 8 % (20-51); Monocytes 2 % (2-9); Segmented Neutrophils 69 % (42-75)
[2024-05-26 10:37] LABS: Eosinophils 2 % (0-6); Metamyelocytes 10 % (-); Myelocytes 3 % (-); Normal RBC Morphology Yes; Platelets Checked Yes; Total Cells Counted 100
[2024-05-26] MEDS: ATIVAN 0.5 MG IV (10:55)
[2024-05-26] MEDS: NSS (PRESERVATIVE FREE) 0.25 ML IV (10:55)
[2024-05-26 12:13] VITALS: BP 129/61; BP_SYST 60
== END ==
LOC: RADI 09:24
PROVIDERS: Physician Assistant; ATTENDING PHYSICIAN Internal Medicine Hematology & Oncology; FAMILY PHYSICIAN Family Medicine
DX: C92.10 Chronic myeloid leukemia, BCR/ABL-positive, not having achieved remission (principal); Z79.01 Long term (current) use of anticoagulants
CPT/HCPCS: 88305; 88311; 88312; 36415; 38222; 77012; 85025; 85610; 88313; 88341; 88342